=== PATIENT | male | born 1995 | race Caucasian/White ===

== ENCOUNTER 2018-06-24 16:50 | Emergency (ER) | payer OTHER ==
[2018-06-24] MEDS ORDERED: PENICILLIN G BENZATHINE 1.2 MILLION UNIT/2 ML DISP.SYRIN IM ONE (18:24)
--- NOTE | 2018-06-24 18:50 | ER Document Report ---
ED Medical Screen (RME) - General Chief Complaint: Sore Throat Stated Complaint: SORE THROAT Time Seen by Provider: 06/24/18 17:21 Mode of Arrival: Ambulatory Information source: Patient Notes: This is a 22-year-old man with no medical problems who presents to the emergency room with fever and sore throat for 7 days. Patient does report some swelling in the left side of the neck. He denies any nausea or vomiting. He denies any shortness of breath or chest pain. He denies any abdominal pain. TRAVEL OUTSIDE OF THE [place] IN LAST 30 DAYS: No - HPI Onset: Last week Onset/Duration: Gradual Quality of pain: Dull Severity: None Associated Symptoms: Chills, Fever, Sore throat Exacerbated by: Denies Relieved by: Denies Similar symptoms previously: No Recently seen / treated by doctor: No - Related Data Smoking: Cigarettes Frequency of alcohol use: None Drug Abuse: None Allergies/Adverse Reactions: No Known Allergies Allergy (Unverified 06/24/18 16:53) Past Medical History - General Information source: Patient - Social History Cigarette use (# per day): Yes - Half a pack per day Chew tobacco use (# tins/day): Yes Frequency of alcohol use: None Drug Abuse: None Lives with: Family Family history: None - Medical History Medical History: Negative Renal/ Medical History: Denies: Hx Peritoneal Dialysis Surgical Hx: Negative Review of Systems - Review of Systems Constitutional: Chills, Fever EENT: Throat pain Cardiovascular: denies: Chest pain, Palpitations, Heart racing Respiratory: denies: Cough, Short of breath, Wheezing Gastrointestinal: No symptoms reported Genitourinary: No symptoms reported Male Genitourinary: No symptoms reported Musculoskeletal: No symptoms reported Skin: No symptoms reported Hematologic/Lymphatic: No symptoms reported Neurological/Psychological: No symptoms reported Physical Exam - Vital signs Vitals: Temp Pulse Resp BP Pulse Ox 101.5 F H 104 H 22 H 152/97 H 98 06/24/18 16:54 06/24/18 16:54 06/24/18 16:54 06/24/18 16:54 06/24/18 16:54 Notes: Physical exam: GENERAL: 22-year-old man, alert and oriented 3, febrile, no acute distress. HEAD: Atraumatic, normocephalic. EYES: Pupils equal round and reactive to light, extraocular movements intact, sclera anicteric, conjunctiva are normal. ENT: TMs normal, nares patent, oropharynx shows erythema with significant exudates worse on the right side. There is no swelling or fluctuance suggestive of abscess. There is no uvula deviation. Moist mucous membranes. NECK: There is no stridor. He does have swelling just beyond the angle of the mandible with tender lymphadenopathy. LUNGS: Breath sounds clear to auscultation bilaterally and equal. No wheezes rales or rhonchi. HEART: Regular rate and rhythm without murmurs, rubs or gallops. ABDOMEN: Soft, normoactive bowel sounds. No tenderness to palpation. No guarding, no rebound. No masses appreciated. EXTREMITIES: Normal range of motion, no pitting or edema. No clubbing or cyanosis. NEUROLOGICAL: Cranial nerves II through XII grossly intact. Normal speech, moving all extremities. PSYCH: Normal mood, normal affect. SKIN: Warm, Dry, normal turgor, no rashes or lesions noted. Course - Vital Signs Vital signs: Temp Pulse Resp BP Pulse Ox 101.5 F H 104 H 22 H 152/97 H 98 06/24/18 16:54 06/24/18 16:54 06/24/18 16:54 06/24/18 16:54 06/24/18 16:54 Doctor's Discharge - Discharge Clinical Impression: Acute pharyngitis Condition: Stable Disposition: HOME, SELF-CARE Instructions: Penicillin V K ([facility]), Strep Throat ([facility]) Additional Instructions: Recommendations: As we discussed, strep test was positive for strep pharyngitis. The mono test was negative. I would like you to rest, drink plenty of fluids, gargle with Listerine or salt water several times a day. Take the antibiotics as prescribed. Take ibuprofen: 400 mg every 6 hours for pain or fever. Take Tylenol: No more than thousand milligrams every 4 hours while awake for pain or fever for the next 2 days: Do not exceed more than 4000 mg a day. Return to the emergency room for worsening pain, inability to swallow, shortness of breath or any concerns or getting worse. Follow-up with your primary care doctor this week. Prescriptions: Penicillin V Potassium [Penicillin Vk 500 mg Tablet] 500 mg PO QID #28 tablet
[2018-06-24 18:57] VITALS: BP 133/76
== END 2018-06-24 18:56 | disposition home or self-care (01) ==
LOC: ER 16:50
DX: J02.9 Acute pharyngitis, unspecified (principal); R50.9 Fever, unspecified; F17.210 Nicotine dependence, cigarettes, uncomplicated
CPT/HCPCS: 99283; 96372; 36415; 87880; 86308; J0561